=== PATIENT | male | born 1965 | race Caucasian/White ===

== ENCOUNTER 2021-10-20 09:34 | Emergency (ER) | payer SELFPAY ==
[2021-10-20] MEDS ORDERED: CYCLOBENZAPRINE 10 MG TAB ONE (10:20)
[2021-10-20] MEDS ORDERED: KETOROLAC 30 MG/ML INJ ONE (10:20)
[2021-10-20] MEDS ORDERED: LIDOCAINE 4% PATCH ONE (10:20)
--- NOTE | 2021-10-20 11:08 | EDPHYS ---
Physician Documentation [facility] Name: Jorge Funes Age: 56 yrs Sex: Male : 1965 Arrival Date: 10/20/2021 Time: 09:38 Bed 15 Private MD: ED Physician Nathan Olson HPI: 10/20 10:16 This 56 yrs old Male presents to ER via Ambulatory with complaints of Back Pain. pm1 10:16 The patient presents with pain that is acute, with no known mechanism of injury. The pm1 symptoms are located in the Left buttocks, hip. Onset: The symptoms/episode began/occurred 1 week(s) ago. The pain radiates to the left foot. Associated signs and symptoms: Pertinent negatives: abdominal pain, dysuria, fever, incontinence, numbness, tingling. The problem was sustained from unknown cause. Modifying factors: The patient symptoms are alleviated by remaining still, the patient symptoms are aggravated by movement. Severity of symptoms: in the emergency department the symptoms are unchanged. The patient has not experienced similar symptoms in the past. The patient has not recently seen a physician. Historical: - Allergies: 09:57 No Known Allergies; iw - Home Meds: 09:57 None [Active]; iw - PMHx: :57 None; iw - PSHx: :57 left testicle removed; iw - Immunization history:: Client reports having NOT received the Covid vaccine. - Social history:: Smoking status: . ROS: 10:16 Constitutional: Negative for fever, chills, and weight loss, Cardiovascular: Negative pm1 for chest pain, palpitations, and edema, Respiratory: Negative for shortness of breath, cough, wheezing, and pleuritic chest pain, Abdomen/GI: Negative for abdominal pain, nausea, vomiting, diarrhea, and constipation. 10:16 : Negative for injury, bleeding, discharge, and swelling, MS/Extremity: Negative for injury and deformity, Skin: Negative for injury, rash, and discoloration, Neuro: Negative for headache, weakness, numbness, tingling, and seizure. 10:16 Back: Positive for of the left hip and left buttocks. 10:16 All other systems are negative. Exam: 10:16 Constitutional: This is a well developed, well nourished patient who is awake, alert, pm1 and in no acute distress. Head/Face: Normocephalic, atraumatic. 10:16 Eyes: Exam is negative for acute changes. 10:16 ENT: Exam is negative for acute changes, Mouth: is normal, no acute changes, Lips: normal, moist, Oral mucosa: normal, pink and intact, moist. 10:16 Cardiovascular: Exam negative for acute changes, Rate: normal, Rhythm: regular, Pulses: no pulse deficits are appreciated. 10:16 Respiratory: Exam negative for acute changes, respiratory distress, shortness of breath. 10:16 Abdomen/GI: Exam negative for acute changes, Inspection: abdomen appears normal, Palpation: abdomen is soft and non-tender, in all quadrants. 10:16 Back: vertebral tenderness, is not appreciated, muscle spasm, is appreciated in the focal point pain at left hip and left buttocks, Straight leg raises: left lower extremity illicits pain, at 30 degrees. 10:16 Skin: Warm, dry with normal turgor. Normal color with no rashes, no lesions, and no pm1 evidence of cellulitis. MS/ Extremity: Pulses equal, no cyanosis. Neurovascular intact. Full, normal range of motion. 10:16 Neuro: Exam negative for acute changes, Orientation: is normal, Mentation: is normal, Motor: is normal, moves all fours. Vital Signs: 09:55 BP 114 / 86; Pulse 100; Resp 16; Temp 98.6; Pulse Ox 98% on R/A; Pain 8/10; iw 10:14 BP 118 / 92; Pulse 83; Resp 16; Pulse Ox 99% ; vg1 11:00 BP 121 / 89; Pulse 80; Resp 16; Pulse Ox 100% ; vg1 MDM: 10:02 Patient medically screened. [facility] 11:06 Data reviewed: vital signs. Data interpreted: Pulse oximetry: on room air is 99 %. pm1 Interpretation: normal. Counseling: I had a detailed discussion with the patient and/or guardian regarding: the historical points, exam findings, and any diagnostic results supporting the discharge/admit diagnosis, the need for outpatient follow up, to return to the emergency department if symptoms worsen or persist or if there are any questions or concerns that arise at home. Administered Medications: 10:23 Drug: Lidoderm Patch 5 % (700 mg/patch) 1 patches Route: Topical; Site: affected area; vg1 10:25 Drug: Flexeril (cyclobenzaprine) 10 mg Route: PO; vg1 11:22 Follow up: Response: No adverse reaction; Marked relief of symptoms vg1 10:27 Drug: Ketorolac 30 mg Route: IM; Site: left deltoid; vg1 11:22 Follow up: Response: No adverse reaction; Marked relief of symptoms vg1 Disposition: 10/21 09:16 Co-signature as Attending Physician, Nathan Olson MD I agree with the assessment and enoch plan of care. Disposition Summary: 10/20/21 11:07 Discharge Ordered Location: Home pm1 Problem: new pm1 Symptoms: have improved pm1 Condition: Stable pm1 Diagnosis - Lumbago with sciatica, left side pm1 Followup: pm1 - With: Emergency Department - When: As needed - Reason: Worsening of condition Followup: pm1 - With: Private Physician - When: 2 - 3 days - Reason: Recheck today's complaints, Continuance of care, Re-evaluation by your physician Discharge Instructions: - Discharge Summary Sheet pm1 - Sciatica pm1 Forms: - Medication Reconciliation Form pm1 - Thank You Letter pm1 - Antibiotic Education pm1 - Prescription Opioid Use pm1 Prescriptions: - Cyclobenzaprine 10 mg Oral Tablet - take 1 tablet by ORAL route every 8 hours As needed; 30 tablet; Refills: 0, pm1 Product Selection Permitted - Diclofenac Sodium 75 mg Oral tablet,delayed release (DR/EC) - take 1 tablet by ORAL route 2 times per day As needed; 30 tablet; Refills: 0, pm1 Product Selection Permitted - Lidoderm 5 % Topical adhesive patch,medicated - apply 1 patch by TRANSDERMAL route once daily As needed 12 hours on and 12 pm1 hours off in a 24-hour period; 10 patch; Refills: 0, Product Selection Permitted Signatures: Nathan Olson MD MD cha Williams, Irene, RN RN iw Jessee Bingham, [employer] CLAIMS ASSISTANT pm1 Jaky Leyva RN RN vg1 Corrections: (The following items were deleted from the chart) 10/20 09:57 09:57 PSHx: None; [facility]
--- NOTE | 2021-10-20 11:08 | ER ---
Nurse's Notes [facility] Name: Jorge Funes Age: 56 yrs Sex: Male : 1965 Arrival Date: 10/20/2021 Time: 09:38 Bed 15 Private MD: Diagnosis: Lumbago with sciatica, left side Presentation: 10/20 09:55 Chief complaint: Patient states: pain from left buttock to leg , thinks it's sciatic iw nerve, denies injury , pain X 1 week. Coronavirus screen: At this time, the client does not indicate any symptoms associated with coronavirus-19. Ebola Screen: Patient negative for fever greater than or equal to 101.5 degrees Fahrenheit, and additional compatible Ebola Virus Disease symptoms Patient denies exposure to infectious person. Patient denies travel to an Ebola-affected area in the 21 days before illness onset. No symptoms or risks identified at this time. Initial Sepsis Screen: Does the patient meet any 2 criteria? No. Patient's initial sepsis screen is negative. Does the patient have a suspected source of infection? No. Patient's initial sepsis screen is negative. Risk Assessment: Do you want to hurt yourself or someone else? Patient reports no desire to harm self or others. Onset of symptoms was October 13, 2021. 09:55 Method Of Arrival: Ambulatory iw 09:55 Acuity: RUBÉN 3 iw Historical: - Allergies: 09:57 No Known Allergies; iw - Home Meds: 09:57 None [Active]; iw - PMHx: 09:57 None; iw - PSHx: 09:57 left testicle removed; iw - Immunization history:: Client reports having NOT received the Covid vaccine. - Social history:: Smoking status: . Screenin:14 Abuse screen: Denies threats or abuse. Nutritional screening: No deficits noted. vg1 Tuberculosis screening: No symptoms or risk factors identified. Fall Risk No fall in past 12 months (0 pts). No secondary diagnosis (0 pts). No IV (0 pts). Ambulatory Aid- None/Bed Rest/Nurse Assist (0 pts). Gait- Normal/Bed Rest/Wheelchair (0 pts) Mental Status- Oriented to own ability (0 pts). Total Guerra Fall Scale indicates No Risk (0-24 pts). Assessment: 10:12 General: Appears in no apparent distress. uncomfortable, Behavior is calm, cooperative. vg1 Pain: Complains of pain in left leg and left hip Pain currently is 6 out of 10 on a pain scale. Pain began x 1 week. Neuro: Level of Consciousness is awake, alert, obeys commands, Oriented to person, place, time, situation, Denies weakness blurred vision dizziness, numbness. Cardiovascular: Patient's skin is warm and dry. Respiratory: Airway is patent Respiratory effort is even, unlabored. GI: No signs and/or symptoms were reported involving the gastrointestinal system. : No signs and/or symptoms were reported regarding the genitourinary system. EENT: No signs and/or symptoms were reported regarding the EENT system. Derm: Skin is intact, is healthy with good turgor. Musculoskeletal: Circulation, motion, and sensation intact. 11:21 Reassessment: Patient appears in no apparent distress at this time. Patient and/or vg1 family updated on plan of care and expected duration. Pain level reassessed. Patient is alert, oriented x 3, equal unlabored respirations, skin warm/dry/pink. Patient states feeling better. Vital Signs: 09:55 BP 114 / 86; Pulse 100; Resp 16; Temp 98.6; Pulse Ox 98% on R/A; Pain 8/10; iw 10:14 BP 118 / 92; Pulse 83; Resp 16; Pulse Ox 99% ; vg1 11:00 BP 121 / 89; Pulse 80; Resp 16; Pulse Ox 100% ; vg1 ED Course: 09:38 Patient arrived in ED. mr 09:56 Triage completed. iw 09:57 Arm band placed on. iw 10:00 Jessee Bingham NP is PHCP. pm1 10:00 Nathan Olson MD is Attending Physician. pm1 10:03 Jaky Leyva, RN is Primary Nurse. vg1 10:14 Patient has correct armband on for positive identification. Bed in low position. Call vg1 light in reach. Side rails up X 1. Adult w/ patient. 10:14 No provider procedures requiring assistance completed. vg1 11:22 Patient did not have IV access during this emergency room visit. vg1 Administered Medications: 10:23 Drug: Lidoderm Patch 5 % (700 mg/patch) 1 patches Route: Topical; Site: affected area; vg1 10:25 Drug: Flexeril (cyclobenzaprine) 10 mg Route: PO; vg1 11:22 Follow up: Response: No adverse reaction; Marked relief of symptoms vg1 10:27 Drug: Ketorolac 30 mg Route: IM; Site: left deltoid; vg1 11:22 Follow up: Response: No adverse reaction; Marked relief of symptoms vg1 Outcome: 11:07 Discharge ordered by MD. pm1 11:21 Discharged to home ambulatory, with family. vg1 11:21 Condition: stable 11:21 Discharge instructions given to patient, Instructed on discharge instructions, follow up and referral plans. medication usage, Demonstrated understanding of instructions, follow-up care, medications, Prescriptions given X 3. 11:22 Patient left the ED. vg1 Signatures: Smita Wallace Irene, RN RN iw Jessee Bingham, [employer] ANALYSIS MGR pm1 Jaky Leyva RN RN vg1 Corrections: (The following items were deleted from the chart) 09:57 09:57 PSHx: None; [facility] 09:58 09:55 Acuity: RUBÉN 4 [facility]
[2021-10-20 11:29] VITALS: TEMP 98.6
[2021-10-20 11:32] VITALS: BP 121/89; O2SAT 100
== END 2021-10-20 11:22 | disposition home or self-care (01) ==
LOC: ER 09:34
DX: M54.42 Lumbago with sciatica, left side (principal)
CPT/HCPCS: 96372; 99283